=== PATIENT | male | born 1990 | race Native Hawaiian/Other Pacific Islander ===

== ENCOUNTER 2022-01-14 13:01 | Emergency (ER) | payer SELFPAY ==
[2022-01-14 13:06] VITALS: BP 130/104
[2022-01-14] MEDS ORDERED: TETANUS,DIPHTHERIA TOXOID ADULT 0.5 ML INJ IM ONE (13:20)
[2022-01-14] MEDS ORDERED: MORPHINE 4 MG/1 ML INJ IV ONE (13:20)
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
[2022-01-14] MEDS ORDERED: ceFAZolin/NS 2 GM/100 ML 2 GM/100 ML BAG IV ONE (13:30)
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
[2022-01-14] MEDS ORDERED: HYDROGEN PEROXIDE 118 ML SOLUTION TP ONE (16:39)
== END 2022-01-14 18:02 | disposition home or self-care (01) ==
LOC: ED 13:01
DX: S91.332A Puncture wound without foreign body, left foot, initial encounter (principal); T14.8XXA Other injury of unspecified body region, initial encounter; F17.200 Nicotine dependence, unspecified, uncomplicated; F10.20 Alcohol dependence, uncomplicated; F12.90 Cannabis use, unspecified, uncomplicated
CPT/HCPCS: 73610; 73630; 90471; 90714; 96365; 96375; 99283; J2270